=== PATIENT | male | born 1970 | race Caucasian/White ===

== ENCOUNTER 2016-07-02 20:11 | Observation (INO) | payer MEDICARE ==
--- NOTE | ~2016-07-02 | HP ---
History And Physical [facility] [address] [place]. [address] NAME: DARA BRODY : 70 STATUS : ADM Kavita PAT#: [id number] AGE: 46 ADM/REG DATE : 07/02/16 MR#: [id number] REPORT SERV DATE: 07/03/16 DICTATED BY: SAMANTHA GUERRA DATE: 07/03/16 REPORT STATUS : Draft TRANSCRIBED BY: MODL DATE: 07/03/16 DATE OF ADMISSION: 07/02/2016 CHIEF COMPLAINT: Intermittent chest pain for three weeks. HISTORY OF PRESENT ILLNESS: This is a 46-year-old white male with a history of paroxysmal atrial fibrillation, status post ablation, 02/24/2016, with no breakthrough since ablation per last office visit note of 03/31/2016 with plans to cut back or discharge Rythmol in 10 weeks per last office visit per that note. Eliquis has been continued. He has normal coronary arteries per cath arteriogram, 05/01/2015, and a normal echocardiogram, 05/01/2015. He does have untreated GERD. He has stopped taking his proton pump inhibitor over concerns of developing decreased bone mass. The patient reports he had his [employer] LINQ device interrogated approximately one week ago as he had felt his heart pounding out of his chest and his heart was in a regular fast rhythm per his who is a nurse. Report for the LINQ interrogation at that time is unavailable to me, and the patient does not know what it showed. I called [employer], and they do not keep records of LINQ interrogations. The patient does not have his LINK uploader here, and therefore, [employer] will have to come to re-interrogate it. He has not had any palpitations since that time. He reports over 2 or 3 weeks he has episodes of a vague/mild funny feeling in his chest that he describes as more of a mild discomfort. There are no alleviating or exacerbating factors. It occurs at random. It is brief chest pains that occur over the left side of the chest, sometimes the left side, and sometimes on his left arm. Again, he does not think it is worse with deep breaths or with any particular activity. He denies any palpitations, syncope, near syncope, or any other symptoms associated. He denies any recent illness. At this present time, he is feeling fine. He does report that he is having some substernal chest burning and again tells me that he has stopped regularly taking medicine for his reflux/GERD. He was evaluated in the emergency room and overnight in the [facility] and had no events on monitor and again has had no chest pain while here. PAST MEDICAL HISTORY: 1. Paroxysmal atrial fibrillation, status post ablation, 02/24/2016. 2. History of vagally induced syncope at the end of stress test at which he reached 11.5 METS. He underwent evaluation for this postexercise syncope with bradycardia and brief asystole and had subsequent normal echocardiogram and normal coronary arteriogram, all on 05/01/2015. Dr. Mills saw him at that time and felt it was vagally induced. He also did have atrial fibrillation on 05/01/2015 and underwent cardioversion. 3. History of paroxysmal atrial fibrillation with an implantable loop recorder placed, 05/01/2015, and status post cardioversion, 05/01/2015. Again, status post ablation with Dr. Mills, 02/24/2016. He did have an EP study, 02/03/2016, with no evidence of AV kareen reentrant tachycardia but spontaneous PAF noted, and that is why he then underwent ablation, 02/24/2016. 4. Cardiac CT, 02/11/2016, with no atherosclerosis; variant pulmonary anatomy and early branching, right lower pulmonary vein. 5. Likely obstructive sleep apnea per overnight oximetry with Dr. Gibson consistent with History And Physical [address] [address] NAME: DARA BRODY : 70 STATUS : ADM Kavita PAT#: [id number] AGE: 46 ADM/REG DATE : 07/02/16 MR#: [id number] REPORT SERV DATE: 07/03/16 DICTATED BY: SAMANTHA GUERRA DATE: 07/03/16 REPORT STATUS : Draft TRANSCRIBED BY: MODRema DATE: 07/03/16 sleep apnea/disordered breathing with recommendation for sleep study. This was 02/01/2016, the patient is waiting for secondary insurance to undergo sleep study. 6. Bipolar disorder, on no medications. 7. GERD, the patient has taken himself off medication. 8. Renal stones. 9. Hypertension. PAST SURGICAL HISTORY: 1. Lumbar surgery. 2. Cholecystectomy. 3. Vasectomy. 4. Lithotripsies with stents. 5. Atrial fibrillation ablation, 02/24/2016. SOCIAL HISTORY: He is . Supportive who is a nurse is at the bedside. He does not have a structured exercise routine and is disabled secondary to bipolar and back pain. He denies tobacco, alcohol, or illicit drug use, although he was exposed to secondhand smoke as a child. FAMILY HISTORY: Mother with CAD, status post CABG at the age of 42. She remains alive at the age of 71. Also with paternal grandmother with myocardial infarction, maternal grandfather with myocardial infarction, and maternal grandmother with myocardial infarction. REVIEW OF SYSTEMS: As above per HPI, all other systems reviewed and negative. ALLERGIES: NO KNOWN ALLERGIES NEXT. MEDICATIONS: Home medication list reviewed and is as follows: 1. Eliquis 5 mg p.o. twice per day. 2. Diltiazem ER 120 mg p.o. after lunch. 3. Nitroglycerin 0.4 mg p.o. sublingual chest pain. 4. Rythmol 225 mg p.o. three times a day. PHYSICAL EXAMINATION: VITAL SIGNS: Oxygen saturation 95% on room air. Weight unavailable. Temperature 97.9, pulse 66, respiratory rate 16, blood pressure 104/66 with initial blood pressure of 128/79. GENERAL: Well developed, well nourished, in no acute distress HEENT: Anicteric. Normal EOM. Head normocephalic. PERRLA, no xanthelasma. NECK: Supple. No JVD. Carotids normal without bruits. LUNGS: Clear to auscultation bilaterally anterior and posterior. Respirations even and unlabored. CARDIAC: S1, S2 regular rate and rhythm. No murmurs, rubs, or gallops. No chest wall tenderness. ABDOMEN: Normal bowel sounds. Soft and nontender to palpation. No masses or organomegaly. EXTREMITIES: No peripheral edema. DP/PT and radial pulses palpable bilaterally. No clubbing or cyanosis. History And Physical [address] [address] NAME: DRAA BRODY : 70 STATUS : ADM Kavita PAT#: [id number] AGE: 46 ADM/REG DATE : 07/02/16 MR#: [id number] REPORT SERV DATE: 07/03/16 DICTATED BY: SAMANTHA GUERRA DAVID DATE: 07/03/16 REPORT STATUS : Draft TRANSCRIBED BY: KEY DATE: 07/03/16 SKIN: Warm and dry. Normal turgor. No pallor or cyanosis. MUSCULOSKELETAL: Moving all extremities x4. Normal muscle strength. NEURO/PSYCH: Alert and oriented with appropriate affect. LABORATORY DATA: BMP: Sodium 141, potassium 3.7, creatinine 1.04, glucose 89, calcium 8.8, and magnesium 2.1. CBC: White blood cell count 7.3, hemoglobin 15.7, hematocrit 45.8, platelets 235, and troponin less than 0.02 x2. STUDIES: Chest x-ray, no acute processes. EKGs, personally interpreted x2, normal sinus rhythm with no ischemia. Cath arteriogram, 05/01/2015, normal coronaries, preserved LVEF. Echocardiogram, 05/01/2015, essentially normal with preserved ejection fraction. No significant valvular disease and mildly dilated aortic root. Mild diastolic dysfunction only. Telemetry, normal sinus rhythm with no events. ASSESSMENT AND PLAN: 1. Atypical chest pain. Patient with atypical chest pain occurring at random for 2 to 3 weeks. He underwent evaluation with two negative troponins and 2 benign EKGs with no ischemia. He does have normal coronaries on cath arteriogram and had an essentially normal echocardiogram, both 05/01/2015, and no atherosclerosis on cardiac CT, 01/2016. He has no chest pain at this time and is in normal sinus rhythm with no events on monitor. Given normal coronaries on extensive evaluation 1 year ago, no further cardiac testing required at this time. He will be discharged to home after his LINQ is interrogated and is to keep his followup appointment with Dr. Mills which he reports is in 1 to 2 weeks. He also needs to follow up with his primary care provider in one week to evaluate for noncardiac causes for chest pain including GERD and anxiety/bipolar disorder along with musculoskeletal etiologies. The patient voices understanding and in agreement with the plan. 2. Normal coronary arteries on cath arteriogram, 05/01/2015; please see discussion above. 3. History of paroxysmal atrial fibrillation, status post ablation, 02/24/2016, with Dr. Mills. He is in normal sinus rhythm in the ER and on telemetry while here in the [facility] with no events on monitor. The patient reports over 1 week ago he had heart racing and denies any palpitations or heart racing since then. I will ask [employer] to come in and interrogate his LINQ device this morning. If there are no events on interrogation, then would plan on discharging home on current cardiac medications; otherwise, may adjust cardiac medications. Again, follow up with Dr. Mills in 1 to 2 weeks. The patient will be seen by Dr. Astudillo prior to anticipated discharge. 4. Hypertension, blood pressure is well controlled at this time on current medications. 5. Likely obstructive sleep apnea, the patient reports he is waiting to undergo a formal sleep study and treatment until next month when he gains secondary insurance through [facility] [address] [address] NAME: DARA BRODY : 70 STATUS : ADM Kavita PAT#: [id number] AGE: 46 ADM/REG DATE : 07/02/16 MR#: [id number] REPORT SERV DATE: 07/03/16 DICTATED BY: SAMANTHA GUERRA DATE: 07/03/16 REPORT STATUS : Draft TRANSCRIBED BY: KEY DATE: 07/03/16 his . I advised him to schedule the appointment then with Dr. Gibson given abnormal overnight oximetry. We did discuss the impact of untreated sleep apnea on atrial fibrillation, and the patient voices understanding. 6. Bipolar disorder, this is noted, and he is not on any treatment at this present time. He is to follow up with primary care provider for further evaluation and management. 7. Gastroesophageal reflux disease. He reports that he is having heartburn symptoms as part of his chest pain, and he reports that he has stopped consistently taking proton pump inhibitors as he is concerned about lowering of bone mass. I advised him to restart [id number] PPI at this time and to take daily until he follows up with primary care provider. He is to discuss further with PCP any further treatments and evaluation. 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 SHANNON/KEY Samantha Guerra NP / [id number] CC: MILLICENT PEREZ
[~2016-07-02 20:11] MED LIST: AVAP150 PO; CARDIZEM LA120 MG PO; ELIQUIS 5 MG TAB5 MG PO; NITROSTAT0.4 MG SL; NORV5 PO; PRILO PO; RYTHMOL225 MG PO; TOPXL25 PO; TUMSROLL PO
[2016-07-02 20:48] LABS: BASOPHILS 0.4 %; BASOPHILS ABSOLUTE 0.03 10/3/uL (0.0-0.16); EOSINOPHILS 2.3 %; EOSINOPHILS ABSOLUTE 0.17 10/3/uL (0.0-0.53); ER CBC TAT 0 Hrs 14 Mins; HEMATOCRIT 45.8 % (40.0-51.0); HEMOGLOBIN 15.7 g/dL (13.6-17.8); IMMATURE GRANULOCYTES 0.3 %; IMMATURE GRANULOCYTES ABSOLUTE 0.02 10/3/uL (0.0-0.11); LYMPHOCYTES 35.4 %; LYMPHOCYTES ABSOLUTE 2.57 10/3/uL (0.67-4.30); MEAN CORPUS HGB CONC 34.3 g/dL (32.0-36.0); MEAN PLATELET VOLUME 9.7 fL (9.2-13.0); MONOCYTES 11.1 %; MONOCYTES ABSOLUTE 0.81 10/3/uL (0.21-1.20); NEUTROPHILS 50.5 %; NEUTROPHILS ABSOLUTE 3.67 10/3/uL (2.02-8.40); PLATELET COUNT 235 10/3/uL (150-400); RBC DISTRIBUTION WIDTH 12.7 % (12.0-16.0); RED CELL COUNT 5.06 10/6/uL (4.7-6.1); WHITE BLOOD CELLS 7.3 10/3/uL (4.5-10.5)
[2016-07-02 20:53] LABS: MANUAL DIFF NO %; MEAN CORPUSCULAR VOLUME 90.5 fL (80-100)
[2016-07-02 20:55] LABS: INTERNATIONAL NORMAL RATI 1.2 UNITS (-); PARTIAL THROMBO TIME 33.2 SEC (22.5-37.2); PROTIME (NOT ORD) 15.2 SEC (12.0-14.5)
[2016-07-02 21:02] LABS: BUN (BLOOD UREA NITROGEN) 17 MG/DL (6-23); CALCIUM, SERUM 8.8 MG/DL (8.5-10.4); CHEST PAIN PROFILE TAT 0 Hrs 28 Mins; CHLORIDE, SERUM 107 MMOL/L (96-112); CO2 (CARBON DIOXIDE) 25 MMOL/L (24-34); CREATININE 1.04 MG/DL (0.70-1.30); GFR AFRICAN AMERICAN 99 ML/MIN (>=60); GFR NON AFRICAN AMERICAN 86 ML/MIN (>=60); GLUCOSE, SERUM 89 MG/DL (60-99); POTASSIUM, SERUM 3.7 MMOL/L (3.5-5.3); SODIUM, SERUM 141 MMOL/L (135-148); TROPONIN I <0.02 NG/ML (<0.05)
[2016-07-02] MEDS ORDERED: CARTIA XT120 MG/24 PO (21:53)
[2016-07-02] MEDS ORDERED: ELIQUIS 5 MG TAB5 MG PO (21:53)
[2016-07-02] MEDS ORDERED: RYTHMOL225 MG PO (21:53)
[2016-07-02] MEDS ORDERED: NITROSTAT0.4 MG SL (21:54)
[2016-07-03] MEDS ORDERED: PREV15 PO (10:09)
== END 2016-07-03 10:42 | disposition home or self-care (01) ==
LOC: ER 20:11 → CDU1 21:41
PROVIDERS: Emergency Medicine
DX: R07.89 Other chest pain (principal); I10 Essential (primary) hypertension; F31.9 Bipolar disorder, unspecified; I48.0 Paroxysmal atrial fibrillation; K21.9 Gastro-esophageal reflux disease without esophagitis; Z87.442 Personal history of urinary calculi; Z90.49 Acquired absence of other specified parts of digestive tract; Z98.890 Other specified postprocedural states; Z79.899 Other long term (current) drug therapy
CPT/HCPCS: 71020; 80048; 83735; 84484; 85025; 85610; 85730; 93005; 99285; A9270-GY; G0378